=== PATIENT | male | born 1985 | race Caucasian/White ===

== ENCOUNTER 2017-06-25 20:36 | Emergency (ER) | payer MEDICAID ==
[2017-06-25] MEDS ORDERED: Albuterol 6.7 GM Inhaler INH ONE ×2 (20:37→23:37)
[2017-06-25 22:23] LABS: SODIUM,NA 137 mmol/L (135-145)
[2017-06-25 22:24] LABS: ANION GAP 11.2; CHLORIDE,CL 100 mmol/L (101-111)
[2017-06-25] MEDS ORDERED: Albuterol/Ipratropium 3.0-0.5 MG/3 ML Neb Soln NEB ONE (22:41)
--- NOTE | 2017-06-25 23:12 | EDM.PDOC ---
ED HPI GENERAL MEDICAL PROBLEM - General Chief Complaint: Chest Pain Stated Complaint: [id number] CHEST PAINS Time Seen by Provider: 06/25/17 21:00 Source of Information: Reports: Patient History Limitations: Reports: No Limitations - History of Present Illness INITIAL COMMENTS - FREE TEXT/NARRATIVE: ED with family with c/o of chest pain after eating and while playing bingo. Has had similar over past 2 days. no fever. Ocassional cough., smoker 1 PPD. Hx intermittent asthma. Has had HTN in past but "can't " tolerate any of the "10" medications they tried so just stopped them, Moved here in December from [place], has PCP but has not made appointment yet. Mid-Sternal Chest Pain Score (Numeric/FACES): 5 - Related Data Allergies Allergy/AdvReac Type Severity Reaction Status Date / Time No Known Allergies Allergy Verified 06/25/17 20:49 Home Meds: Home Meds Aspirin 81 mg PO DAILY 06/25/17 [History] Past Medical History Cardiovascular History: Reports: High Cholesterol, Hypertension Gastrointestinal History: Reports: GERD Social & Family History - Family History Family Medical History: Noncontributory - Tobacco Use Smoking Status *Q: Current Every Day Smoker Years of Tobacco use: 16 Packs/Tins Daily: 1 - Caffeine Use Caffeine Use: Reports: Soda - Recreational Drug Use Recreational Drug Use: No ED ROS GENERAL - Review of Systems Review Of Systems: See Below Constitutional: Reports: No Symptoms HEENT: Reports: No Symptoms Respiratory: Reports: Pleuritic Chest Pain Cardiovascular: Reports: Other (hx hypertension) GI/Abdominal: Reports: No Symptoms : Reports: No Symptoms Musculoskeletal: Reports: No Symptoms Neurological: Reports: Dizziness Psychiatric: Reports: No Symptoms ED EXAM, GENERAL - Physical Exam Exam: See Below Exam Limited By: No Limitations General Appearance: Alert, No Apparent Distress, Anxious, Obese Eye Exam: Bilateral Eye: PERRL Ears: Normal External Exam Ear Exam: Bilateral Ear: TM normal Nose: Normal Inspection Throat/Mouth: Normal Inspection Head: Atraumatic, Normocephalic Neck: Normal Inspection Respiratory/Chest: No Respiratory Distress, Wheezing (right) Cardiovascular: Normal Peripheral Pulses, Regular Rate, Rhythm GI/Abdominal: Normal Bowel Sounds Back Exam: Normal Inspection Extremities: Normal Inspection Neurological: Alert, Oriented, Normal Cognition Psychiatric: Normal Affect, Normal Mood Skin Exam: Warm, Dry, Intact, Normal Color Course - Vital Signs Last Recorded V/S: Last Vital Signs Temp 99.5 F 06/25/17 20:51 Pulse 69 06/25/17 22:48 Resp 20 06/25/17 20:51 BP 177/111 H 06/25/17 20:51 Pulse Ox 97 06/25/17 20:51 - Orders/Labs/Meds Orders: Active Orders 24 hr Category Date Time Status EKG 12 Lead [EKG Documentation Completion] [] STAT Care 06/25/17 21:11 Active RT Aerosol Therapy [] ASDIRECTED Care 06/25/17 22:41 Active Labs: Laboratory Tests 06/25/17 06/25/17 Range/Units 20:47 20:47 WBC 13.3 H (5.0-10.0) 10^3/uL RBC 5.10 (4.6-6.2) 10^6/uL Hgb 16.0 (14.0-18.0) g/dL Hct 46.1 (40.0-54.0) % MCV 90.4 (80-100) fL MCH 31.4 (27.0-34.0) pg MCHC 34.7 (33.0-35.0) g/dL Plt Count 181 (150-450) 10^3/uL Neut % (Auto) 63.0 (42.2-75.2) % Lymph % (Auto) 24.4 (20.5-50.1) % [place] % (Auto) 7.9 (2-8) % Eos % (Auto) 4.2 H (1.0-3.0) % Baso % (Auto) 0.5 (0.0-1.0) % Sodium 137 (135-145) mmol/L Potassium 3.2 L (3.6-5.0) mmol/L Chloride 100 L (101-111) mmol/L Carbon Dioxide 29.0 (21.0-31.0) mmol/L Anion Gap 11.2 BUN 7 (7-18) mg/dL Creatinine 0.8 (0.6-1.3) mg/dL Est Cr Clr Drug Dosing 125.09 mL/min Estimated GFR (MDRD) > 60 BUN/Creatinine Ratio 8.75 Glucose 114 H (74-105) mg/dL Calcium 8.9 (8.4-10.2) mg/dl Total Bilirubin 0.5 (0.2-1.0) mg/dL AST 27 (10-42) IU/L ALT 31 (10-60) IU/L Alkaline Phosphatase 61 (42-121) IU/L Troponin I < 0.02 (0.00-0.02) ng/ml Total Protein 7.0 (6.7-8.2) g/dl Albumin 4.1 (3.2-5.5) g/dl Globulin 2.9 Albumin/Globulin Ratio 1.41 Meds: Medications Discontinued Medications Generic Name Dose Route Start Last Admin Trade Name Freq PRN Reason Stop Dose Admin Al Hydroxide/Mg Hydroxide 30 ml 06/25/17 23:14 06/25/17 23:17 Gi Cocktail PO 06/25/17 23:15 30 ml ONETIME ONE Administration Albuterol Confirm 06/25/17 23:37 06/25/17 23:43 Proventil Hfa Administered 06/25/17 23:38 Not Given Dose 6.7 gm INH .STK-MED ONE Albuterol/Ipratropium 3 ml 06/25/17 22:41 06/25/17 22:48 Duoneb 3.0-0.5 Mg/3 Ml NEB 06/25/17 22:42 3 ml ONETIME ONE Administration - Re-Assessments/Exams Free Text/Narrative Re-Assessment/Exam: 06/26/17 06:04 Mild relief of sx following neb. Complete relief following GI cocktail. Departure - Departure Time of Disposition: 23:40 Disposition: Home, Self-Care 01 Condition: Good Clinical Impression: Atypical chest pain Gastroesophageal reflux disease Qualifiers: Esophagitis presence: without esophagitis Qualified Code(s): K21.9 - Gastro- esophageal reflux disease without esophagitis Instructions: Nonspecific Chest Pain, [id number] Referrals: PCP,Not In Area [Primary Care Provider] - Forms: ED Department Discharge Additional Instructions: Establish primary care, monitor blood pressure low salt, low fat, low acid diet Albuterol inhaler 2 puffs every 4 hours as needed for cough and wheezing - My Orders Last 24 Hours: My Active Orders 06/25/17 21:11 EKG 12 Lead [EKG Documentation Completion] [RC] STAT 06/25/17 22:41 RT Aerosol Therapy [RC] ASDIRECTED - Assessment/Plan Last 24 Hours: My Active Orders 06/25/17 21:11 EKG 12 Lead [EKG Documentation Completion] [RC] STAT 06/25/17 22:41 RT Aerosol Therapy [RC] ASDIRECTED
[2017-06-25] MEDS ORDERED: GI Cocktail Oral Solution 30 ML PO ONE (23:14)
--- NOTE | 2017-06-26 13:31 | EKG ---
06/25/2017- CHIKIS BUSCH - FINDINGS: EKG per my reading shows sinus rhythm at the rate of 85. [facility] /[id number]
== END 2017-06-25 23:45 | disposition home or self-care (01) ==
LOC: DL.ED 20:36
DX: K21.9 Gastro-esophageal reflux disease without esophagitis (principal); I10 Essential (primary) hypertension; E78.00 Pure hypercholesterolemia, unspecified; F17.210 Nicotine dependence, cigarettes, uncomplicated; Z79.82 Long term (current) use of aspirin
CPT/HCPCS: 36415; 71045; 80053; 84484; 85025; 93005; 94640; 99285; A9270

== ENCOUNTER 2019-02-22 11:04 | Emergency (ER) | payer MEDICAID ==
--- NOTE | 2019-02-22 11:21 | EDM.PDOC ---
ED HPI GENERAL MEDICAL PROBLEM - General Chief Complaint: Respiratory Problem Stated Complaint: SOB/NAUSEA Time Seen by Provider: 02/22/19 11:21 Source of Information: Reports: Patient, RN, RN Notes Reviewed History Limitations: Reports: No Limitations - History of Present Illness INITIAL COMMENTS - FREE TEXT/NARRATIVE: patient presents to the ER with complaint of head and chest congestion, fever chills, nausea and vomiting, productive cough with green sputum. admits to shortness of breath, chest pain with cough.Patient states this has been going on for a week or week and a half. She states she has gotten bronchitis frequently in the past. Admits to being a smoker. Admits history of asthma, and high blood pressure. Patient states he has not followed up with his primary care provider. Onset: Gradual Onset Date: 02/13/19 - Related Data Allergies Allergy/AdvReac Type Severity Reaction Status Date / Time No Known Allergies Allergy Verified 02/22/19 11:10 Home Meds: Home Meds . [No Known Home Meds] 02/22/19 [History] Past Medical History HEENT History: Reports: None Cardiovascular History: Reports: High Cholesterol, Hypertension Other Cardiovascular History: Pt states the last time he was in the ER he was told to be on high blood pressure meds but he stopped taking it after a few days because he felt it made his blood pressure worse Respiratory History: Reports: Asthma, Bronchitis, Recurrent Gastrointestinal History: Reports: GERD Genitourinary History: Reports: None Musculoskeletal History: Reports: None Neurological History: Reports: None Psychiatric History: Reports: None Endocrine/Metabolic History: Reports: Obesity/BMI 30+ Hematologic History: Reports: None Immunologic History: Reports: None Oncologic (Cancer) History: Reports: None Dermatologic History: Reports: None - Infectious Disease History Infectious Disease History: Reports: None - Past Surgical History Head Surgeries/Procedures: Reports: None Social & Family History - Family History Family Medical History: Noncontributory - Tobacco Use Smoking Status *Q: Current Every Day Smoker Years of Tobacco use: 22 Packs/Tins Daily: 1 - Caffeine Use Caffeine Use: Reports: Soda - Recreational Drug Use Recreational Drug Use: No ED ROS GENERAL - Review of Systems Review Of Systems: ROS reveals no pertinent complaints other than HPI. ED EXAM, GENERAL - Physical Exam Exam: See Below Exam Limited By: No Limitations General Appearance: Alert, WD/WN, No Apparent Distress Eye Exam: Bilateral Eye: EOMI, Normal Inspection Ears: Normal External Exam, Hearing Grossly Normal Nose: Normal Inspection Throat/Mouth: Normal Inspection, Normal Voice, No Airway Compromise Head: Atraumatic, Normocephalic Neck: Normal Inspection, Supple, Non-Tender, Full Range of Motion Respiratory/Chest: No Respiratory Distress, Rhonchi (throughout), Wheezing ( throughout) Cardiovascular: Normal Peripheral Pulses, Regular Rate, Rhythm, No Edema, No Gallop, No JVD, No Murmur, No Rub Peripheral Pulses: 2+: Radial (L), Radial (R) GI/Abdominal: Normal Bowel Sounds, Soft, Non-Tender (Male) Exam: Deferred Rectal (Males) Exam: Deferred Back Exam: Normal Inspection, Full Range of Motion, NT Extremities: Normal Inspection, Normal Range of Motion, Non-Tender, Normal Capillary Refill, No Pedal Edema Neurological: Alert, Oriented, CN II-XII Intact, Normal Cognition, Normal Gait, Normal Reflexes, No Motor/Sensory Deficits Psychiatric: Normal Affect, Normal Mood Skin Exam: Warm, Dry, Intact, Normal Color, No Rash Lymphatic: No Adenopathy Course - Vital Signs Last Recorded V/S: Last Vital Signs Temp 98.6 F 02/22/19 11:11 Pulse 100 02/22/19 11:11 Resp 18 02/22/19 11:11 BP 161/96 H 02/22/19 11:11 Pulse Ox 98 02/22/19 11:11 - Radiology Interpretation Free Text/Narrative:: chest x-ray: FINDINGS: Lungs: Hazy opacity overlying the lung bases on the frontal view only, most likely related to overlying soft tissues. No dense consolidation or jennifer pulmonary edema. Pleural space: Unremarkable. No pleural effusion. No pneumothorax. Heart/Mediastinum: Unremarkable. No cardiomegaly. Bones/joints: Unremarkable. IMPRESSION: No acute cardiopulmonary abnormality. Thank you for allowing us to participate in the care of your patient. Dictated and Authenticated by: Jenny Odell MD 02/22/2019 12:24 PM Central Time ([place] & [place]) See radiologist's report Departure - Departure Time of Disposition: 12:32 Disposition: Home, Self-Care 01 Condition: Fair Clinical Impression: Bronchitis - Discharge Information *PRESCRIPTION DRUG MONITORING PROGRAM REVIEWED*: No *COPY OF PRESCRIPTION DRUG MONITORING REPORT IN PATIENT CHAYO: No Instructions: Shortness of Breath, Adult, [id number], Upper Respiratory Infection, Adult, [id number]-[id number], Acute Bronchitis, Adult, [id number], Steps to Quit Smoking, [id number], How to Use a Dry Powder Inhaler, [id number] Forms: ED Department Discharge Additional Instructions: Rx: Prednisone 40 mg orally daily 5 days, albuterol inhaler 1-2 puffs inhaled every 4 hours as needed for shortness of breath, azithromycin 500 mg today, 250 mg daily for the next 4 drink plenty of water May use [id number] Coricidin HBP for sinus congestion Follow-up with your primary care provider
== END 2019-02-22 12:42 | disposition home or self-care (01) ==
LOC: DL.ED 11:04
DX: J40 Bronchitis, not specified as acute or chronic (principal); I10 Essential (primary) hypertension; J45.909 Unspecified asthma, uncomplicated; E66.9 Obesity, unspecified; F17.210 Nicotine dependence, cigarettes, uncomplicated; Z68.41 Body mass index [BMI] 40.0-44.9, adult
CPT/HCPCS: 71046; 99283

== ENCOUNTER 2021-05-07 10:57 | Inpatient (IN) | payer MEDICAID ==
[2021-05-07] MEDS ORDERED: Albuterol/Ipratropium 3.0-0.5 MG/3 ML Neb Soln NEB ONE (11:16)
[2021-05-07] MEDS ORDERED: Aspirin 81 MG Tab.Chew PO ONE (11:16)
[2021-05-07] MEDS ORDERED: Dexamethasone 4 MG/ML SDV IVPUSH ONE (11:16)
[2021-05-07] MEDS ORDERED: Sodium Chloride 0.9% 1,000 ML IV ONE (11:17)
[2021-05-07] MEDS: Sodium Chloride 0.9% 10 ML Syringe FLUSH PRN (11:44)
[2021-05-07 11:55] LABS: ANION GAP 16.8 mEq/L (7-13); CHLORIDE,CL 95 mmol/L (98-107); SODIUM,NA 134 mmol/L (136-145)
[2021-05-07 12:17] LABS: CORONAVIRUS COVID-19 NAA NEGATIVE (NEGATIVE); RESPIRATORY SYNCYTIAL VIR NAA NEGATIVE (NEGATIVE)
[2021-05-07] MEDS ORDERED: Oseltamivir 75 MG Cap PO ONE (12:23)
--- NOTE | 2021-05-07 12:50 | CT ---
PROCEDURE INFORMATION: Exam: CT Chest Without Contrast; Diagnostic Exam date and time: 05/07/2021 12:31 PM Age: 35 years old Clinical indication: Dyspnea and shortness of breath; Additional info: Dyspnea, hypoxia, influenza+, acute resp. Failure TECHNIQUE: Imaging protocol: Diagnostic computed tomography of the chest without contrast. Radiation optimization: All CT scans at this facility use at least one of these dose optimization techniques: automated exposure control; mA and/or kV adjustment per patient size (includes targeted exams where dose is matched to clinical indication); or iterative reconstruction. COMPARISON: CR Chest 2V 02/22/2019 11:39 AM FINDINGS: Lungs: There is mild diffuse bronchial wall thickening. The findings could be due to bronchitis. Reactive airways disease/asthma also possible. There is no bronchiectasis. There is no pulmonary fibrosis. No definite pneumonia or pulmonary edema. Pleural spaces: Unremarkable. No pneumothorax. No pleural effusion. Heart: Unremarkable. No cardiomegaly. No pericardial effusion. Aorta: Unremarkable. No aortic aneurysm. Lymph nodes: Unremarkable. No enlarged lymph nodes. Liver: The liver is enlarged and of low attenuation. Findings compatible with steatosis. Bones/joints: Unremarkable. No acute fracture. Soft tissues: Unremarkable. IMPRESSION: 1. Diffuse bronchial wall thickening suggestive of bronchitis. Reactive airways disease/asthma could produce a similar appearance. 2. Enlarged fatty liver.
[2021-05-07] MEDS ORDERED: Acetaminophen 500 MG Tab PO ONE (13:13)
--- NOTE | 2021-05-07 13:27 | EDM.PDOC ---
"Scribed by Annel Knowles 05/07/21 1146 for Shannon Mcguire MD ED HPI GENERAL MEDICAL PROBLEM - General Chief Complaint: Respiratory Problem Stated Complaint: TROUBLE BREATHING Time Seen by Provider: 05/07/21 11:11 Source of Information: Reports: Patient, RN, RN Notes Reviewed History Limitations: Reports: No Limitations - History of Present Illness INITIAL COMMENTS - FREE TEXT/NARRATIVE: Patient presents to ED by POV with complaint of sudden onset of shortness of breath starting yesterday with congestion cough and fever. Pt has history of asthma a obesity. Denies N/V, hemoptysis, or edema. Admits to orthopnea and sharp chest pain with cough and breathing and some chest pressure. Onset: Sudden Onset Date: 05/06/21 Duration: Constant, Getting Worse Location: Reports: Chest, Generalized Quality: Reports: Pressure, Sharp Severity: Severe Improves with: Reports: None Worsens with: Reports: None Associated Symptoms: Reports: No Other Symptoms - Related Data Allergies Allergy/AdvReac Type Severity Reaction Status Date / Time No Known Allergies Allergy Verified 05/07/21 11:24 Home Meds: Home Meds . [No Known Home Meds] 02/22/19 [History] Past Medical History HEENT History: Reports: None Cardiovascular History: Reports: High Cholesterol, Hypertension Other Cardiovascular History: Pt states the last time he was in the ER he was told to be on high blood pressure meds but he stopped taking it after a few days because he felt it made his blood pressure worse Respiratory History: Reports: Asthma, Bronchitis, Recurrent Gastrointestinal History: Reports: GERD Genitourinary History: Reports: None Musculoskeletal History: Reports: None Neurological History: Reports: None Psychiatric History: Reports: None Endocrine/Metabolic History: Reports: Obesity/BMI 30+ Hematologic History: Reports: None Immunologic History: Reports: None Oncologic (Cancer) History: Reports: None Dermatologic History: Reports: None - Infectious Disease History Infectious Disease History: Reports: None - Past Surgical History Head Surgeries/Procedures: Reports: None Social & Family History - Family History Family Medical History: No Pertinent Family History - Caffeine Use Caffeine Use: Reports: Soda - Living Situation & Occupation Occupation: Employed ED ROS GENERAL - Review of Systems Review Of Systems: Comprehensive ROS is negative, except as noted in HPI. ED EXAM, GENERAL - Physical Exam Exam: See Below Exam Limited By: No Limitations General Appearance: Alert, Anxious, Mild Distress, Obese Eye Exam: Bilateral Eye: Normal Inspection Nose: No Blood, Nasal Drainage (Congested with small amount of clear drainage) Throat/Mouth: Normal Lips, Normal Oropharynx, Normal Voice, No Airway Compromise, Other (Very dry oral mucosa) Head: Atraumatic, Normocephalic Neck: Normal Inspection, Non-Tender, Full Range of Motion. No: Lymphadenopathy (L), Lymphadenopathy (R) Respiratory/Chest: No Respiratory Distress, No Accessory Muscle Use, Chest Non- Tender, Decreased Breath Sounds, Other (Increased work of breathing). No: Crackles, Rales, Rhonchi, Wheezing GI/Abdominal: Normal Bowel Sounds, Soft, Non-Tender, Other (Benign obese abdomen) Back Exam: Normal Inspection Extremities: Normal Inspection, Normal Range of Motion, Non-Tender, Normal Capillary Refill, No Pedal Edema Neurological: Alert, Oriented, CN II-XII Intact, Normal Cognition, Normal Gait, No Motor/Sensory Deficits Psychiatric: Normal Affect, Anxious Skin Exam: Warm, Dry, Intact, Normal Color, No Rash #1 Interpretation EKG Date: 05/07/21 Time: 11:26 Rhythm: Other (sinus tachycardia) Rate (Beats/Min): 124 [place]: Normal P-Wave: Present QRS: Other (narrow complex QRS with S1, P3, T3 patteran.) ST-T: Normal QT: Normal Comparison: NA - No Prior EKG Course - Vital Signs Last Recorded V/S: Last Vital Signs Temp 100 F 05/07/21 13:17 Pulse 128 H 05/07/21 11:19 Resp 22 H 05/07/21 11:19 BP 159/118 H 05/07/21 11:19 Pulse Ox 89 L 05/07/21 11:19 - Orders/Labs/Meds Orders: Active Orders 24 hr Category Date Time Status Peripheral IV Care [RC] . DIRECTED Care 05/07/21 11:18 Active RT Aerosol Therapy [RC] ASDIRECTED Care 05/07/21 11:16 Active CULTURE BLOOD [BC] Stat Lab 05/07/21 11:15 Received CULTURE BLOOD [BC] Stat Lab 05/07/21 11:40 Received Sodium Chloride 0.9% [Saline Flush] Med 05/07/21 11:18 Active 10 ml FLUSH ASDIRECTED PRN Blood Culture x2 Reflex Set [OM.PC] Stat Oth 05/07/21 11:17 Ordered Peripheral IV Insertion Adult [OM.PC] Stat Oth 05/07/21 11:18 Ordered Medication Orders Sodium Chloride (Sodium Chloride 0.9% 10 Ml Syringe) 10 ml FLUSH ASDIRECTED PRN PRN Reason: Keep Vein Open Last Admin: 05/07/21 11:44 Dose: 10 ml Documented by: KEVIN Labs: Laboratory Tests 05/07/21 05/07/21 05/07/21 Range/Units 11:01 11:15 11:15 WBC 15.0 H (5.0-10.0) 10^3/uL RBC 5.35 (4.6-6.2) 10^6/uL Hgb 16.4 (14.0-18.0) g/dL Hct 49.8 (40.0-54.0) % MCV 93.1 (80-100) fL MCH 30.7 (27.0-34.0) pg MCHC 32.9 L (33.0-35.0) g/dL Plt Count 155 (150-450) 10^3/uL Neut % (Auto) 80.6 H (42.2-75.2) % Lymph % (Auto) 6.3 L (20.5-50.1) % [place] % (Auto) 12.7 H (2-8) % Eos % (Auto) 0.1 L (1.0-3.0) % Baso % (Auto) 0.3 (0.0-1.0) % Add Manual Diff Yes Neutrophils % (Manual) 82 H (42-75) % Band Neutrophils % 4 % Lymphocytes % (Manual) 4 L (20-50) % Monocytes % (Manual) 10 H (2-8) % PT (9.0-12.0) SEC INR (0.9-1.2) APTT (22.0-34.0) SEC D-Dimer, Quantitative (0-400) ng/mL Sodium 134 L (136-145) mmol/L Potassium 3.8 (3.5-5.1) mmol/L Chloride 95 L (98-107) mmol/L Carbon Dioxide 26 (21-32) mmol/L Anion Gap 16.8 H (7-13) mEq/L BUN 13 (7-18) mg/dL Creatinine 0.94 (0.70-1.30) mg/dL Est Cr Clr Drug Dosing 102.55 mL/min Estimated GFR (MDRD) > 60 BUN/Creatinine Ratio 13.8 (No establ ref range) Glucose 144 H (70-99) mg/dL Lactic Acid (0.4-2.0) mmol/L Calcium 8.5 (8.5-10.1) mg/dL Ferritin (26-388) mg/mL Total Bilirubin 0.4 (0.2-1.0) mg/dL AST 45 H (15-37) U/L ALT 48 (16-63) U/L Alkaline Phosphatase 65 (46-116) U/L Troponin I High Sens 18 (<=76) pg/mL C-Reactive Protein 8.1 H (0.0-0.9) mg/dL B-Natriuretic Peptide < 5 (0-100) pg/ml Total Protein 7.8 (6.4-8.2) g/dL Albumin 3.8 (3.4-5.0) g/dL Globulin 4.0 Albumin/Globulin Ratio 0.9 Influenza Type A RNA Positive H (NEGATIVE) RSV RNA (INAAT) Negative (NEGATIVE) Influenza Type B RNA Negative (NEGATIVE) SARS-CoV-2 RNA (MEE) Negative (NEGATIVE) 05/07/21 05/07/21 05/07/21 Range/Units 11:15 11:15 11:40 WBC (5.0-10.0) 10^3/uL RBC (4.6-6.2) 10^6/uL Hgb (14.0-18.0) g/dL Hct (40.0-54.0) % MCV (80-100) fL MCH (27.0-34.0) pg MCHC (33.0-35.0) g/dL Plt Count (150-450) 10^3/uL Neut % (Auto) (42.2-75.2) % Lymph % (Auto) (20.5-50.1) % [place] % (Auto) (2-8) % Eos % (Auto) (1.0-3.0) % Baso % (Auto) (0.0-1.0) % Add Manual Diff Neutrophils % (Manual) (42-75) % Band Neutrophils % % Lymphocytes % (Manual) (20-50) % Monocytes % (Manual) (2-8) % PT 12.1 H (9.0-12.0) SEC INR 1.2 (0.9-1.2) APTT 31.0 (22.0-34.0) SEC D-Dimer, Quantitative 211 (0-400) ng/mL Sodium (136-145) mmol/L Potassium (3.5-5.1) mmol/L Chloride (98-107) mmol/L Carbon Dioxide (21-32) mmol/L Anion Gap (7-13) mEq/L BUN (7-18) mg/dL Creatinine (0.70-1.30) mg/dL Est Cr Clr Drug Dosing mL/min Estimated GFR (MDRD) BUN/Creatinine Ratio (No establ ref range) Glucose (70-99) mg/dL Lactic Acid 1.6 (0.4-2.0) mmol/L Calcium (8.5-10.1) mg/dL Ferritin 572 H (26-388) mg/mL Total Bilirubin (0.2-1.0) mg/dL AST (15-37) U/L ALT (16-63) U/L Alkaline Phosphatase (46-116) U/L Troponin I High Sens (<=76) pg/mL C-Reactive Protein (0.0-0.9) mg/dL B-Natriuretic Peptide (0-100) pg/ml Total Protein (6.4-8.2) g/dL Albumin (3.4-5.0) g/dL Globulin Albumin/Globulin Ratio Influenza Type A RNA (NEGATIVE) RSV RNA (INAAT) (NEGATIVE) Influenza Type B RNA (NEGATIVE) SARS-CoV-2 RNA (MEE) (NEGATIVE) Meds: Medications Generic Name Dose Route Start Last Admin Trade Name Freq PRN Reason Stop Dose Admin Sodium Chloride 10 ml 05/07/21 11:18 05/07/21 11:44 Sodium Chloride 0.9% 10 Ml Syringe FLUSH 10 ml ASDIRECTED PRN Administration Keep Vein Open Discontinued Medications Generic Name Dose Route Start Last Admin Trade Name Freq PRN Reason Stop Dose Admin Acetaminophen 1,000 mg 05/07/21 13:13 05/07/21 13:17 Acetaminophen 500 Mg Tab PO 05/07/21 13:14 1,000 mg ONETIME ONE Administration Albuterol/Ipratropium 3 ml 05/07/21 11:16 05/07/21 11:34 Albuterol/Ipratropium 3.0-0.5 Mg/3 Ml Neb Soln NEB 05/07/21 11:17 3 ml ONETIME ONE Administration Aspirin 324 mg 05/07/21 11:16 05/07/21 11:43 Aspirin 81 Mg Tab.Chew PO 05/07/21 11:17 324 mg ONETIME ONE Administration Dexamethasone 6 mg 05/07/21 11:16 05/07/21 11:43 Dexamethasone 4 Mg/Ml Sdv IVPUSH 05/07/21 11:17 6 mg ONETIME ONE Administration Sodium Chloride 1,000 mls @ 999 mls/hr 05/07/21 11:17 05/07/21 11:43 Normal Saline IV 05/07/21 12:17 999 mls/hr .BOLUS ONE Administration Oseltamivir Phosphate 75 mg 05/07/21 12:23 05/07/21 13:04 Oseltamivir 75 Mg Cap PO 05/07/21 12:24 75 mg ONETIME ONE Administration - Radiology Interpretation Free Text/Narrative:: [facility] Final Radiology Report Call: [phone] assistance Online chat: [email or web address] Name: CHIKIS BUSCH Age: 35Years M Date: 05/07/2021 SSN: -- : [id number] Study: CT CHEST WO CONT Requesting Physician: SHANNON MCGUIRE Images: [phone] Addl Studies: Provided Clinical History: Dyspnea, hypoxia, influenza+, acute resp. failure Contrast: Without Contrast Medium: Contrast Amount: Contrast Method: Page 1 of 2 PROCEDURE INFORMATION: Exam: CT Chest Without Contrast; Diagnostic Exam date and time: 05/07/2021 12:31 PM Age: 35 years old Clinical indication: Dyspnea and shortness of breath; Additional info: Dyspnea, hypoxia, influenza+, acute resp. Failure TECHNIQUE: Imaging protocol: Diagnostic computed tomography of the chest without contrast. Radiation optimization: All CT scans at this facility use at least one of these dose optimization techniques: automated exposure control; mA and/or kV adjustment per patient size (includes targeted exams where dose is matched to clinical indication); or iterative reconstruction. COMPARISON: CR Chest 2V 02/22/2019 11:39 AM FINDINGS: Lungs: There is mild diffuse bronchial wall thickening. The findings could be due to bronchitis. Reactive airways disease/asthma also possible. There is no bronchiectasis. There is no pulmonary fibrosis. No definite pneumonia or pulmonary edema. Pleural spaces: Unremarkable. No pneumothorax. No pleural effusion. Heart: Unremarkable. No cardiomegaly. No pericardial effusion. Aorta: Unremarkable. No aortic aneurysm. Lymph nodes: Unremarkable. No enlarged lymph nodes. Liver: The liver is enlarged and of low attenuation. Findings compatible with steatosis. Bones/joints: Unremarkable. No acute fracture. Soft tissues: Unremarkable. IMPRESSION: CHIKIS BUSCH | Final Radiology Report CONFIDENTIALITY STATEMENT This report is intended only for use by the referring physician, and only in accordance with law. If you received this in error, call [phone]. Page 2 of 2 1. Diffuse bronchial wall thickening suggestive of bronchitis. Reactive airways disease/asthma could produce a similar appearance. 2. Enlarged fatty liver. Thank you for allowing us to participate in the care of your patient. Dictated and Authenticated by: Ray Barbosa MD 05/07/2021 12:49 PM Central Time ([place] & [place]) Departure - Departure Time of Disposition: 13:25 (admitted to Dr. Cruz) Disposition: Admitted As Inpatient 66 Condition: Fair Clinical Impression: Influenza A, Acute respiratory failure with hypoxia, History of asthma - Discharge Information *PRESCRIPTION DRUG MONITORING PROGRAM REVIEWED*: Not Applicable *COPY OF PRESCRIPTION DRUG MONITORING REPORT IN PATIENT [place]: Not Applicable Forms: ED Department Discharge Sepsis Event Note (ED) - Focused Exam Vital Signs: Vital Signs Temp Temp Pulse Resp BP Pulse Ox 05/07/21 13:17 100 F 05/07/21 11:19 103.5 F H 128 H 22 H 159/118 H 89 L - My Orders Last 24 Hours: My Active Orders 05/07/21 11:15 CULTURE BLOOD [BC] Stat 05/07/21 11:16 RT Aerosol Therapy [RC] ASDIRECTED 05/07/21 11:17 Blood Culture x2 Reflex Set [OM.PC] Stat 05/07/21 11:18 Peripheral IV Care [RC] . DIRECTED Sodium Chloride 0.9% [Saline Flush] 10 ml FLUSH ASDIRECTED PRN Peripheral IV Insertion Adult [OM.PC] Stat 05/07/21 11:40 CULTURE BLOOD [BC] Stat - Assessment/Plan Last 24 Hours: My Active Orders 05/07/21 11:15 CULTURE BLOOD [BC] Stat 05/07/21 11:16 RT Aerosol Therapy [RC] ASDIRECTED 05/07/21 11:17 Blood Culture x2 Reflex Set [OM.PC] Stat 05/07/21 11:18 Peripheral IV Care [RC] . DIRECTED Sodium Chloride 0.9% [Saline Flush] 10 ml FLUSH ASDIRECTED PRN Peripheral IV Insertion Adult [OM.PC] Stat 05/07/21 11:40 CULTURE BLOOD [BC] Stat I have read and agree with the documentation that has been completed regarding this visit. By signing this record, I attest that the documentation was completed in my physical presence and is an accurate record of the encounter."
[2021-05-07] MEDS ORDERED: Docusate Sodium 100 MG Cap PO PRN (14:13)
[2021-05-07] MEDS ORDERED: oxyCODONE 5 MG Tab PO PRN (14:13)
[2021-05-07] MEDS ORDERED: Acetaminophen 325 MG Tab PO PRN (14:13)
[2021-05-07] MEDS ORDERED: Ondansetron 4 MG/2 ML SDV IVPUSH PRN (14:13)
[2021-05-07] MEDS ORDERED: 50% Dextrose in Water 50 ML Syringe IVPUSH PRN (14:15)
[2021-05-07] MEDS ORDERED: Albuterol/Ipratropium 3.0-0.5 MG/3 ML Neb Soln NEB PRN (14:18)
[2021-05-07] MEDS: methylPREDNISolone Sodium Succinate 40 MG/1 ML SDV IVPUSH SCH ×2 (14:41→20:36)
[2021-05-07] MEDS: NS + KCl 20mEq/L 1,000 ML IV SCH ×2 (14:42→20:55)
[2021-05-07] MEDS ORDERED: Azithromycin 250 MG Tab PO SCH (15:15)
--- NOTE | 2021-05-07 15:21 | PCM.HP ---
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 [No Known Home Meds] 02/22/19 [History] Past Medical History HEENT History: Reports: None Cardiovascular History: Reports: High Cholesterol, Hypertension Other Cardiovascular History: Pt states the last time he was in the ER he was told to be on high blood pressure meds but he stopped taking it after a few days because he felt it made his blood pressure worse Respiratory History: Reports: Asthma, Bronchitis, Recurrent Gastrointestinal History: Reports: GERD Genitourinary History: Reports: None Musculoskeletal History: Reports: None Neurological History: Reports: None Psychiatric History: Reports: None Endocrine/Metabolic History: Reports: Obesity/BMI 30+ Hematologic History: Reports: None Immunologic History: Reports: None Oncologic (Cancer) History: Reports: None Dermatologic History: Reports: None - Infectious Disease History Infectious Disease History: Reports: None - Past Surgical History Head Surgeries/Procedures: Reports: None Social & Family History - Family History Family Medical History: No Pertinent Family History - Tobacco Use Tobacco Use Status *Q: Current Every Day Tobacco User Years of Tobacco use: 20 Packs/Tins Daily: 1 - Caffeine Use Caffeine Use: Reports: Soda - Recreational Drug Use Recreational Drug Use: No H&P Review of Systems - Review of Systems: Review Of Systems: See Below General: Reports: Fever, Chills, Malaise Pulmonary: Reports: Shortness of Breath Cardiovascular: Reports: Chest Pain (with cough) Gastrointestinal: Denies: Abdominal Pain Psychiatric: Denies: Confusion Exam - Exam Exam: See Below - Vital Signs Vital Signs: Last Vital Signs Temp 99.0 F 05/07/21 14:02 Pulse 103 H 05/07/21 14:02 Resp 20 05/07/21 14:02 BP 130/77 05/07/21 14:02 Pulse Ox 90 L 05/07/21 14:13 Weight: 297 lb 4.8 oz - Exam Quality Assessment: Supplemental Oxygen General: Alert Neck: Supple Lungs: Normal Respiratory Effort, Wheezing Cardiovascular: Regular Rate, Regular Rhythm GI/Abdominal Exam: Normal Bowel Sounds, Soft, Non-Tender Extremities: No Pedal Edema Skin: Warm, Dry Neuro Extensive - Mental Status: Alert, Oriented x3, Normal Mood/Affect - Patient Data Lab Results Last 24 hrs: Laboratory Results - last 24 hr 05/07/21 05/07/21 05/07/21 Range/Units 11:01 11:15 11:15 WBC 15.0 H (5.0-10.0) 10^3/uL RBC 5.35 (4.6-6.2) 10^6/uL Hgb 16.4 (14.0-18.0) g/dL Hct 49.8 (40.0-54.0) % MCV 93.1 (80-100) fL MCH 30.7 (27.0-34.0) pg MCHC 32.9 L (33.0-35.0) g/dL Plt Count 155 (150-450) 10^3/uL Neut % (Auto) 80.6 H (42.2-75.2) % Lymph % (Auto) 6.3 L (20.5-50.1) % [place] % (Auto) 12.7 H (2-8) % Eos % (Auto) 0.1 L (1.0-3.0) % Baso % (Auto) 0.3 (0.0-1.0) % Add Manual Diff Yes Neutrophils % (Manual) 82 H (42-75) % Band Neutrophils % 4 % Lymphocytes % (Manual) 4 L (20-50) % Monocytes % (Manual) 10 H (2-8) % PT (9.0-12.0) SEC INR (0.9-1.2) APTT (22.0-34.0) SEC D-Dimer, Quantitative (0-400) ng/mL Sodium 134 L (136-145) mmol/L Potassium 3.8 (3.5-5.1) mmol/L Chloride 95 L (98-107) mmol/L Carbon Dioxide 26 (21-32) mmol/L Anion Gap 16.8 H (7-13) mEq/L BUN 13 (7-18) mg/dL Creatinine 0.94 (0.70-1.30) mg/dL Est Cr Clr Drug Dosing 102.55 mL/min Estimated GFR (MDRD) > 60 BUN/Creatinine Ratio 13.8 (No establ ref range) Glucose 144 H (70-99) mg/dL Lactic Acid (0.4-2.0) mmol/L Calcium 8.5 (8.5-10.1) mg/dL Ferritin (26-388) mg/mL Total Bilirubin 0.4 (0.2-1.0) mg/dL AST 45 H (15-37) U/L ALT 48 (16-63) U/L Alkaline Phosphatase 65 (46-116) U/L Troponin I High Sens 18 (<=76) pg/mL C-Reactive Protein 8.1 H (0.0-0.9) mg/dL B-Natriuretic Peptide < 5 (0-100) pg/ml Total Protein 7.8 (6.4-8.2) g/dL Albumin 3.8 (3.4-5.0) g/dL Globulin 4.0 Albumin/Globulin Ratio 0.9 Influenza Type A RNA Positive H (NEGATIVE) RSV RNA (INAAT) Negative (NEGATIVE) Influenza Type B RNA Negative (NEGATIVE) SARS-CoV-2 RNA (MEE) Negative (NEGATIVE) 05/07/21 05/07/21 05/07/21 Range/Units 11:15 11:15 11:40 WBC (5.0-10.0) 10^3/uL RBC (4.6-6.2) 10^6/uL Hgb (14.0-18.0) g/dL Hct (40.0-54.0) % MCV (80-100) fL MCH (27.0-34.0) pg MCHC (33.0-35.0) g/dL Plt Count (150-450) 10^3/uL Neut % (Auto) (42.2-75.2) % Lymph % (Auto) (20.5-50.1) % [place] % (Auto) (2-8) % Eos % (Auto) (1.0-3.0) % Baso % (Auto) (0.0-1.0) % Add Manual Diff Neutrophils % (Manual) (42-75) % Band Neutrophils % % Lymphocytes % (Manual) (20-50) % Monocytes % (Manual) (2-8) % PT 12.1 H (9.0-12.0) SEC INR 1.2 (0.9-1.2) APTT 31.0 (22.0-34.0) SEC D-Dimer, Quantitative 211 (0-400) ng/mL Sodium (136-145) mmol/L Potassium (3.5-5.1) mmol/L Chloride (98-107) mmol/L Carbon Dioxide (21-32) mmol/L Anion Gap (7-13) mEq/L BUN (7-18) mg/dL Creatinine (0.70-1.30) mg/dL Est Cr Clr Drug Dosing mL/min Estimated GFR (MDRD) BUN/Creatinine Ratio (No establ ref range) Glucose (70-99) mg/dL Lactic Acid 1.6 (0.4-2.0) mmol/L Calcium (8.5-10.1) mg/dL Ferritin 572 H (26-388) mg/mL Total Bilirubin (0.2-1.0) mg/dL AST (15-37) U/L ALT (16-63) U/L Alkaline Phosphatase (46-116) U/L Troponin I High Sens (<=76) pg/mL C-Reactive Protein (0.0-0.9) mg/dL B-Natriuretic Peptide (0-100) pg/ml Total Protein (6.4-8.2) g/dL Albumin (3.4-5.0) g/dL Globulin Albumin/Globulin Ratio Influenza Type A RNA (NEGATIVE) RSV RNA (INAAT) (NEGATIVE) Influenza Type B RNA (NEGATIVE) SARS-CoV-2 RNA (MEE) (NEGATIVE) Result Diagrams: 05/07/21 11:15 05/07/21 11:15 - Problem List (1) Acute respiratory failure with hypoxia SNOMED Code(s): 97959119, 410664364 ICD Code: J96.01 - ACUTE RESPIRATORY FAILURE WITH HYPOXIA Status: Acute Current Visit: No (2) History of asthma SNOMED Code(s): 986535077 ICD Code: Z87.09 - PERSONAL HISTORY OF OTHER DISEASES OF THE RESPIRATORY SYSTEM Status: Acute Current Visit: No (3) Influenza A SNOMED Code(s): 909944370 ICD Code: J10.1 - FLU DUE TO OTH IDENT INFLUENZA VIRUS W OTH RESP MANIFEST Status: Acute Current Visit: No Problem List Initiated/Reviewed/Updated: Yes Orders Last 24hrs: Active Orders 24 hr Category Date Time Status Admission Diagnosis [ADT] Routine ADT 05/07/21 13:34 Ordered Patient Status [ADT] Routine ADT 05/07/21 13:34 Active Blood Glucose Check, Bedside [RC] WITHMEALSANDBED Care 05/07/21 14:15 Active Oxygen Therapy [RC] PRN Care 05/07/21 14:13 Active RT Aerosol Therapy [RC] ASDIRECTED Care 05/07/21 14:18 Active Up With Assistance [RC] 10 Care 05/07/21 14:13 Active VTE/DVT Education [RC] , Care 05/07/21 14:13 Active Vital Signs [RC] 00,04,08,12,16,20 Care 05/07/21 14:13 Active Regular Diet [DIET] Diet 05/07/21 Dinner Active CULTURE BLOOD [BC] Stat Lab 05/07/21 11:15 Received CULTURE BLOOD [BC] Stat Lab 05/07/21 11:40 Received PROCALCITONIN [REF] Routine Lab 05/07/21 11:40 Received Acetaminophen [TylenoL] Med 05/07/21 14:13 Active 650 mg PO Q4H PRN Albuterol/Ipratropium [DuoNeb 3.0-0.5 MG/3 ML] Med 05/07/21 18:00 Active 3 ml NEB Q6HRRT Albuterol/Ipratropium [DuoNeb 3.0-0.5 MG/3 ML] Med 05/07/21 14:18 Active 3 ml NEB Q6HRRT PRN Azithromycin [Zithromax] Med 05/07/21 15:15 Ordered 500 mg PO DAILY Budesonide [Pulmicort] Med 05/07/21 18:00 Active 0.5 mg NEB BIDRT Dextrose 50% in Water Med 05/07/21 14:15 Active 25 ml IVPUSH ASDIRECTED PRN Docusate Sodium [Colace] Med 05/07/21 14:13 Active 100 mg PO BID PRN Enoxaparin [Lovenox] Med 05/08/21 09:00 Active 40 mg SUBCUT DAILY Insulin Lispro [HumaLOG] Med 05/07/21 18:00 Active See Protocol SUBCUT WITHMEALSANDBED NS + KCl 20mEq/L [Normal Saline with 20 mEq KCl] 1,000 Med 05/07/21 14:15 Active ml IV ASDIRECTED Ondansetron [Zofran] Med 05/07/21 14:13 Active 4 mg IVPUSH Q6H PRN Oseltamivir [Tamiflu] Med 05/07/21 21:00 Active 75 mg PO BID Sodium Chloride 0.9% [Saline Flush] Med 05/07/21 11:18 Active 10 ml FLUSH ASDIRECTED PRN Temazepam [Restoril] Med 05/07/21 14:13 Active 15 mg PO BEDTIME PRN methylPREDNISolone Sod Succ [Solu-MEDROL] Med 05/07/21 14:00 Active 40 mg IVPUSH Q6H oxyCODONE Med 05/07/21 14:13 Active 5 mg PO Q4H PRN Blood Culture x2 Reflex Set [OM.PC] Stat Oth 05/07/21 11:17 Ordered Isolation [COMM] Routine Oth 05/07/21 14:17 Active Peripheral IV Insertion Adult [OM.PC] Stat Oth 05/07/21 11:18 Ordered Resuscitation Status Routine Resus Stat 05/07/21 14:13 Ordered Medication Orders Acetaminophen (Acetaminophen 325 Mg Tab) 650 mg PO Q4H PRN PRN Reason: Pain (Mild 1-3)/fever Albuterol/Ipratropium (Albuterol/Ipratropium 3.0-0.5 Mg/3 Ml Neb Soln) 3 ml NEB Q6HRRT [facility]RISTELLE Albuterol/Ipratropium (Albuterol/Ipratropium 3.0-0.5 Mg/3 Ml Neb Soln) 3 ml NEB Q6HRRT PRN PRN Reason: sob Azithromycin (Azithromycin 250 Mg Tab) 500 mg PO DAILY [facility]RISTELLE Budesonide (Budesonide 0.5 Mg/2 Ml Neb Susp) 0.5 mg NEB BIDRT [facility]RISTELLE Dextrose/Water (50% Dextrose In Water 50 Ml Syringe) 25 ml IVPUSH ASDIRECTED PRN PRN Reason: Hypoglycemia BS<70 Docusate Sodium (Docusate Sodium 100 Mg Cap) 100 mg PO BID PRN PRN Reason: Constipation Enoxaparin Sodium (Enoxaparin 40 Mg/0.4 Ml Syringe) 40 mg SUBCUT DAILY [facility] Potassium Chloride/Sodium Chloride (Normal Saline With 20 Meq Kcl) 1,000 mls @ 150 mls/hr IV ASDIRECTED CHRISTELLE Last Admin: 05/07/21 14:42 Dose: 150 mls/hr Documented by: JANNIE Insulin Human Lispro (Insulin Lispro 100 Units/Ml 3 Ml Vial) 0 unit SUBCUT WITHMEALSANDBED [facility]; Protocol Methylprednisolone Sodium Succinate (Methylprednisolone Sodium Succinate 40 Mg/1 Ml Sdv) 40 mg IVPUSH Q6H [facility] Last Admin: 05/07/21 14:41 Dose: 40 mg Documented by: JANNIE Ondansetron HCl (Ondansetron 4 Mg/2 Ml Sdv) 4 mg IVPUSH Q6H PRN PRN Reason: Nausea/Vomiting Oseltamivir Phosphate (Oseltamivir 75 Mg Cap) 75 mg PO BID [facility] Oxycodone HCl (Oxycodone 5 Mg Tab) 5 mg PO Q4H PRN PRN Reason: Pain (moderate 4-6) Sodium Chloride (Sodium Chloride 0.9% 10 Ml Syringe) 10 ml FLUSH ASDIRECTED PRN PRN Reason: Keep Vein Open Last Admin: 05/07/21 11:44 Dose: 10 ml Documented by: KEVIN Temazepam (Temazepam 15 Mg Cap) 15 mg PO BEDTIME PRN PRN Reason: Sleep Assessment/Plan Comment:: Acute hypoxemic respiratory failure Will supplement oxygen as needed Acute asthma exacerbation associated with obesity Will treat with pulmicort, scheduled and as needed duoneb Start solumedrol Acute viral influenza Start Tamiflu Respiratory isolation Check procalcitonin he is describing brown sputum - possible bacterial superinfection will add azithromycin until procal is resulted Hyponatremia mild Will hydrate Recheck in AM Hyperglycemia Follow BS Use supplemental insulin and hypoglycemia protocol as needed Dvt prophylaxis with lovenox
[2021-05-07] MEDS: Albuterol/Ipratropium 3.0-0.5 MG/3 ML Neb Soln NEB SCH (18:12)
[2021-05-07] MEDS: Budesonide 0.5 MG/2 ML Neb Susp NEB SCH (18:12)
[2021-05-07] MEDS: Azithromycin 250 MG Tab PO SCH (18:40)
[2021-05-07] MEDS: Insulin Lispro 100 Units/ML 3 ML Vial SUBCUT SCH ×2 (18:47→22:17)
[2021-05-07] MEDS: Temazepam 15 MG Cap PO PRN (20:36)
[2021-05-07] MEDS: Oseltamivir 75 MG Cap PO SCH (20:36)
[2021-05-08] MEDS: Albuterol/Ipratropium 3.0-0.5 MG/3 ML Neb Soln NEB SCH ×4 (00:52→18:06)
[2021-05-08] MEDS: methylPREDNISolone Sodium Succinate 40 MG/1 ML SDV IVPUSH SCH ×4 (00:59→19:51)
[2021-05-08] MEDS: NS + KCl 20mEq/L 1,000 ML IV SCH (04:28)
[2021-05-08] MEDS: Budesonide 0.5 MG/2 ML Neb Susp NEB SCH ×2 (07:38→18:06)
[2021-05-08] MEDS: Insulin Lispro 100 Units/ML 3 ML Vial SUBCUT SCH ×4 (09:58→21:54)
[2021-05-08] MEDS: Oseltamivir 75 MG Cap PO SCH ×2 (10:11→21:53)
[2021-05-08] MEDS: Azithromycin 250 MG Tab PO SCH (10:11)
[2021-05-08] MEDS: Enoxaparin 40 MG/0.4 ML Syringe SUBCUT SCH (10:13)
--- NOTE | 2021-05-08 13:45 | PCM.PN ---
- General Info Date of Service: 05/08/21 Admission Dx/Problem (Free Text): Admission Diagnosis/Problem Admission Diagnosis/Problem Acute respiratory failure Subjective Update: feeling better still requiring oxygen support sob is mild, improved, no associated cp Functional Status: Reports: Tolerating Diet - Review of Systems General: Reports: Fever (no fever overnight) Pulmonary: Reports: Shortness of Breath (improved), Wheezing Cardiovascular: Denies: Chest Pain, Edema Genitourinary: Denies: Dysuria Psychiatric: Denies: Confusion - Patient Data Vitals - Most Recent: Last Vital Signs Temp 97.8 F 05/08/21 12:00 Pulse 81 05/08/21 12:00 Resp 18 05/08/21 12:00 BP 147/76 H 05/08/21 12:00 Pulse Ox 93 L 05/08/21 12:00 Weight - Most Recent: 297 lb 4.8 oz I&O - Last 24 Hours: Intake & Output 05/07/21 05/08/21 05/08/21 22:59 06:59 14:59 Intake Total 520 2860 Balance 520 2860 Lab Results Last 24 Hours: Laboratory Results - last 24 hr 05/07/21 05/07/21 05/08/21 Range/Units 16:44 20:34 11:24 POC Glucose 222 H 198 H 268 H (70-99) mg/dL Beck Results Last 24 Hours: Microbiology 05/07/21 11:40 Aerobic Blood Culture - Preliminary Blood - Arm, Right NO GROWTH AFTER 1 DAY Anaerobic Blood Culture - Preliminary NO GROWTH AFTER 1 DAY 05/07/21 11:15 Aerobic Blood Culture - Preliminary Blood - Venous - Iv Start NO GROWTH AFTER 1 DAY Anaerobic Blood Culture - Preliminary NO GROWTH AFTER 1 DAY Med Orders - Current: Current Medications Acetaminophen (Acetaminophen 325 Mg Tab) 650 mg PO Q4H PRN PRN Reason: Pain (Mild 1-3)/fever Albuterol/Ipratropium (Albuterol/Ipratropium 3.0-0.5 Mg/3 Ml Neb Soln) 3 ml NEB Q6HRRT [facility] Last Admin: 05/08/21 07:38 Dose: 3 ml Documented by: Albuterol/Ipratropium (Albuterol/Ipratropium 3.0-0.5 Mg/3 Ml Neb Soln) 3 ml NEB Q6HRRT PRN PRN Reason: sob Last Admin: 05/07/21 15:17 Dose: 3 ml Documented by: Azithromycin (Azithromycin 250 Mg Tab) 500 mg PO DAILY [facility] Last Admin: 05/08/21 10:11 Dose: 500 mg Documented by: Budesonide (Budesonide 0.5 Mg/2 Ml Neb Susp) 0.5 mg NEB BIDRT [facility] Last Admin: 05/08/21 07:38 Dose: 0.5 mg Documented by: Dextrose/Water (50% Dextrose In Water 50 Ml Syringe) 25 ml IVPUSH ASDIRECTED PRN PRN Reason: Hypoglycemia BS<70 Docusate Sodium (Docusate Sodium 100 Mg Cap) 100 mg PO BID PRN PRN Reason: Constipation Enoxaparin Sodium (Enoxaparin 40 Mg/0.4 Ml Syringe) 40 mg SUBCUT DAILY [facility] Last Admin: 05/08/21 10:13 Dose: 40 mg Documented by: Insulin Human Lispro (Insulin Lispro 100 Units/Ml 3 Ml Vial) 0 unit SUBCUT WITHMEALSANDBED [facility]; Protocol Last Admin: 05/08/21 13:28 Dose: 6 units Documented by: Methylprednisolone Sodium Succinate (Methylprednisolone Sodium Succinate 40 Mg/1 Ml Sdv) 40 mg IVPUSH Q6H [facility] Last Admin: 05/08/21 10:08 Dose: 40 mg Documented by: Ondansetron HCl (Ondansetron 4 Mg/2 Ml Sdv) 4 mg IVPUSH Q6H PRN PRN Reason: Nausea/Vomiting Oseltamivir Phosphate (Oseltamivir 75 Mg Cap) 75 mg PO BID [facility] Stop: 05/11/21 21:01 Last Admin: 05/08/21 10:11 Dose: 75 mg Documented by: Oxycodone HCl (Oxycodone 5 Mg Tab) 5 mg PO Q4H PRN PRN Reason: Pain (moderate 4-6) Sodium Chloride (Sodium Chloride 0.9% 10 Ml Syringe) 10 ml FLUSH ASDIRECTED PRN PRN Reason: Keep Vein Open Last Admin: 05/07/21 11:44 Dose: 10 ml Documented by: Temazepam (Temazepam 15 Mg Cap) 15 mg PO BEDTIME PRN PRN Reason: Sleep Last Admin: 05/07/21 20:36 Dose: 15 mg Documented by: Discontinued Medications Acetaminophen (Acetaminophen 500 Mg Tab) 1,000 mg PO ONETIME ONE Stop: 05/07/21 13:14 Last Admin: 05/07/21 13:17 Dose: 1,000 mg Documented by: Albuterol/Ipratropium (Albuterol/Ipratropium 3.0-0.5 Mg/3 Ml Neb Soln) 3 ml NEB ONETIME ONE Stop: 05/07/21 11:17 Last Admin: 05/07/21 11:34 Dose: 3 ml Documented by: Aspirin (Aspirin 81 Mg Tab.Chew) 324 mg PO ONETIME ONE Stop: 05/07/21 11:17 Last Admin: 05/07/21 11:43 Dose: 324 mg Documented by: Azithromycin (Azithromycin 250 Mg Tab) 500 mg PO DAILY [facility] Last Admin: 05/07/21 19:41 Dose: Not Given Documented by: Dexamethasone (Dexamethasone 4 Mg/Ml Sdv) 6 mg IVPUSH ONETIME ONE Stop: 05/07/21 11:17 Last Admin: 05/07/21 11:43 Dose: 6 mg Documented by: Sodium Chloride (Normal Saline) 1,000 mls @ 999 mls/hr IV .BOLUS ONE Stop: 05/07/21 12:17 Last Admin: 05/07/21 11:43 Dose: 999 mls/hr Documented by: Potassium Chloride/Sodium Chloride (Normal Saline With 20 Meq Kcl) 1,000 mls @ 150 mls/hr IV ASDIRECTED [facility] Last Admin: 05/08/21 04:28 Dose: 150 mls/hr Documented by: Oseltamivir Phosphate (Oseltamivir 75 Mg Cap) 75 mg PO ONETIME ONE Stop: 05/07/21 12:24 Last Admin: 05/07/21 13:04 Dose: 75 mg Documented by: - Exam General: Alert, Oriented Neck: Supple Lungs: Normal Respiratory Effort, Wheezing Cardiovascular: Regular Rate, Regular Rhythm GI/Abdominal Exam: Normal Bowel Sounds, Soft, Non-Tender Extremities: No Pedal Edema - Patient Data Lab Results Last 24 hrs: Laboratory Results - last 24 hr 05/07/21 05/07/21 05/08/21 Range/Units 16:44 20:34 11:24 POC Glucose 222 H 198 H 268 H (70-99) mg/dL Result Diagrams: 05/07/21 11:15 05/07/21 11:15 Beck Results Last 24 hrs: Microbiology 05/07/21 11:40 Aerobic Blood Culture - Preliminary Blood - Arm, Right NO GROWTH AFTER 1 DAY Anaerobic Blood Culture - Preliminary NO GROWTH AFTER 1 DAY 05/07/21 11:15 Aerobic Blood Culture - Preliminary Blood - Venous - Iv Start NO GROWTH AFTER 1 DAY Anaerobic Blood Culture - Preliminary NO GROWTH AFTER 1 DAY Sepsis Event Note - Evaluation Sepsis Screening Result: No Definite Risk - Focused Exam Vital Signs: Vital Signs Temp Pulse Resp BP Pulse Ox 05/08/21 12:00 97.8 F 81 18 147/76 H 93 L 05/08/21 07:52 98.1 F 73 18 134/76 95 05/08/21 04:00 99.1 F 83 22 H 154/90 H 93 L - Problem List & Annotations (1) Acute respiratory failure with hypoxia SNOMED Code(s): 96702497, 171905491 Code(s): J96.01 - ACUTE RESPIRATORY FAILURE WITH HYPOXIA Status: Acute C urrent Visit: No (2) History of asthma SNOMED Code(s): 501522244 Code(s): Z87.09 - PERSONAL HISTORY OF OTHER DISEASES OF THE RESPIRATORY SYSTEM Status: Acute Current Visit: No (3) Influenza A SNOMED Code(s): 726314891 Code(s): J10.1 - FLU DUE TO OTH IDENT INFLUENZA VIRUS W OTH RESP MANIFEST Status: Acute Current Visit: No - Problem List Review Problem List Initiated/Reviewed/Updated: Yes - My Orders Last 24 Hours: My Active Orders 05/07/21 13:34 Admission Diagnosis [ADT] Routine Patient Status [ADT] Routine 05/07/21 14:00 methylPREDNISolone Sod Succ [Solu-MEDROL] 40 mg IVPUSH Q6H 05/07/21 14:13 Oxygen Therapy [RC] PRN Up With Assistance [RC] ASDIRECTED VTE/DVT Education [RC] Vital Signs [RC] 00,04,08,12,16,20 Acetaminophen [TylenoL] 650 mg PO Q4H PRN Docusate Sodium [Colace] 100 mg PO BID PRN Ondansetron [Zofran] 4 mg IVPUSH Q6H PRN Temazepam [Restoril] 15 mg PO BEDTIME PRN oxyCODONE 5 mg PO Q4H PRN Resuscitation Status Routine 05/07/21 14:15 Blood Glucose Check, Bedside [RC] WITHMEALSANDBED Dextrose 50% in Water 25 ml IVPUSH ASDIRECTED PRN 05/07/21 14:17 Isolation [COMM] Routine 05/07/21 14:18 RT Aerosol Therapy [RC] ,,,18 Albuterol/Ipratropium [DuoNeb 3.0-0.5 MG/3 ML] 3 ml NEB Q6HRRT PRN 05/07/21 Dinner Regular Diet [DIET] 05/07/21 18:00 Albuterol/Ipratropium [DuoNeb 3.0-0.5 MG/3 ML] 3 ml NEB Q6HRRT Budesonide [Pulmicort] 0.5 mg NEB BIDRT Insulin Lispro [HumaLOG] See Protocol SUBCUT WITHMEALSANDBED 05/07/21 18:30 Azithromycin [Zithromax] 500 mg PO DAILY 05/07/21 21:00 Oseltamivir [Tamiflu] 75 mg PO BID 05/08/21 09:00 Enoxaparin [Lovenox] 40 mg SUBCUT DAILY - Plan Plan:: Acute hypoxemic respiratory failure Will supplement oxygen as needed taper oxygen as possible Acute asthma exacerbation associated with obesity Will treat with pulmicort, scheduled and as needed duoneb Started solumedrol Acute viral influenza Started Tamiflu Respiratory isolation procalcitonin: pending he is describing brown sputum - possible bacterial superinfection treat with azithromycin until procal is resulted Hyponatremia mild Will hydrate Recheck in AM Hyperglycemia Follow BS Use supplemental insulin and hypoglycemia protocol as needed Dvt prophylaxis with lovenox
[2021-05-08] MEDS: Sodium Chloride 0.9% 10 ML Syringe FLUSH PRN ×2 (15:21→19:51)
[2021-05-09] MEDS: Albuterol/Ipratropium 3.0-0.5 MG/3 ML Neb Soln NEB SCH ×3 (01:17→14:01)
[2021-05-09] MEDS: Temazepam 15 MG Cap PO PRN (01:24)
[2021-05-09] MEDS: Sodium Chloride 0.9% 10 ML Syringe FLUSH PRN ×2 (01:25→08:12)
[2021-05-09] MEDS: methylPREDNISolone Sodium Succinate 40 MG/1 ML SDV IVPUSH SCH ×2 (01:26→08:09)
[2021-05-09 07:05] LABS: CHLORIDE,CL 103 mmol/L (98-107); SODIUM,NA 142 mmol/L (136-145)
[2021-05-09] MEDS: Azithromycin 250 MG Tab PO SCH (08:07)
[2021-05-09] MEDS: Oseltamivir 75 MG Cap PO SCH (08:07)
[2021-05-09] MEDS: Enoxaparin 40 MG/0.4 ML Syringe SUBCUT SCH (08:08)
[2021-05-09] MEDS: Insulin Lispro 100 Units/ML 3 ML Vial SUBCUT SCH (08:20)
--- NOTE | 2021-05-09 08:25 | PCM.DCSUM1 ---
Discharge Summary - Hospital Course Brief History: This is a 35-year-old with past medical history of asthma, nicotine dependence, and obesity who was admitted to the hospital due to history of shortness of breath associated with wet cough and was diagnosed with asthma exacerbation along with influenza A infection. Diagnosis: Stroke: No Modified [place] Scale: No Symptoms at All Modified [place] Scale Score: 0 - Discharge Data Discharge Date: 05/09/21 Discharge Disposition: Home, Self-Care 01 Condition: Good - Referral to Home Health Primary Care Physician: PCP None - Patient Summary/Data Operative Procedure(s) Performed: None Complications: None Consults: None Labs Pending at D/C: None none Recommended Follow-up Testing/Procedures: Pulmonary function test and sleep study. Also recommend 2D echo for baseline. Hospital Course: Patient was primarily admitted for asthma exacerbation due to influenza infection and possibly exacerbated by his smoking. He received initial treatment with tamiflu, solu-medrol along with bronchodilators. The patient improved with this regimen. His hospital course was uncomplicated and deemed stable for discharge. He was advised to follow discharge instructions and to follow-up with his primary care in one week. To note, prior to discharge he was counseled on smoking cessation but was not ready to make lifestyle changes. Instead, he was advised to avoid smoking for now until he completely recovers from his acute illness. - Patient Instructions Diet: Heart Healthy Diet Activity: As Tolerated Driving: May Drive Today Showering/Bathing: May Shower Notify Provider of: Fever, Increased Pain, Nausea and/or Vomiting - Discharge Plan *PRESCRIPTION DRUG MONITORING PROGRAM REVIEWED*: Not Applicable *COPY OF PRESCRIPTION DRUG MONITORING REPORT IN PATIENT [facility]: Not Applicable Prescriptions/Med Rec: Albuterol Sulfate [Albuterol Sulfate Hfa] 8.5 gm IH Q4H PRN #1 [id number] PRN Reason: Asthma Albuterol [Proventil Neb Soln] 2.5 mg NEB Q4H PRN #10 ml PRN Reason: Asthma Oseltamivir [Tamiflu] 75 mg PO BID #6 cap Tobacco Cessation Medication: Prescription Refused Home Medications: Home Meds Albuterol Sulfate [Albuterol Sulfate Hfa] 8.5 gm IH Q4H PRN #1 [id number] 05/09/21 [Rx] Albuterol [Proventil Neb Soln] 2.5 mg NEB Q4H PRN #10 ml 05/09/21 [Rx] Oseltamivir [Tamiflu] 75 mg PO BID #6 cap 05/09/21 [Rx] Oxygen Therapy Mode: Room Air Patient Handouts: Influenza, Adult, How to Use a Nebulizer, Adult, Albuterol Metered Dose Inhaler (MDI), Oseltamivir Oral Capsules, Asthma, Adult, [id number], Albuterol Nebulizer Solution - Discharge Summary/Plan Comment DC Time >30 min.: No Total # of Minutes for Discharge Time: 15 mins Discharge Summary/Plan Comment: You will be discharged with additional course of Tamiflu along with breathing treatments for asthma. Per your request, we will initiate nebulizer for outpatient treatment and we suggest for you to continue to take your hand held puffer as needed for shortness of breath. We recommend that you get pulmonary function test along with sleep study and 2D echo before you the lung specialist in [place]. As for home activities, slowly increase level of activities as you can tolerate. Make sure to follow-up with your primary care in 1 week. We also recommend to obtain COVID and influenza vaccinations when medically appropriate. And most importantly, please come back and or seek immediate care at the nearest medical facility should your symptoms persist or get worse. - General Info Date of Service: 05/09/21 Admission Dx/Problem (Free Text: Admission Diagnosis/Problem Admission Diagnosis/Problem Acute respiratory failure Subjective Update: He reports no overnight or acute issues. He is doing relatively well and wants to go home. His vitals are stable and satting adequately on room air. Functional Status: Reports: Pain Controlled, Ambulating, Urinating. Denies: New Symptoms - Review of Systems General: Denies: Fever, Chills HEENT: Denies: Contact Lenses Pulmonary: Denies: Shortness of Breath, Cough, Wheezing Cardiovascular: Denies: Chest Pain, Lightheadedness Gastrointestinal: Denies: Abdominal Pain, Nausea, Vomiting Genitourinary: Reports: No Symptoms Musculoskeletal: Reports: No Symptoms Skin: Reports: No Symptoms Neurological: Denies: Confusion, Weakness Psychiatric: Denies: Depression, Anxiety, Agitation, Hallucinations - Patient Data Vitals - Most Recent: Last Vital Signs Temp 37.0 C 05/09/21 08:00 Pulse 80 05/09/21 08:00 Resp 18 05/09/21 08:00 BP 151/75 H 05/09/21 08:00 Pulse Ox 88 L 05/09/21 08:00 Weight - Most Recent: 134.853 kg I&O - Last 24 hours: Intake & Output 05/08/21 05/09/21 05/09/21 22:59 06:59 14:59 Intake Total 475 800 Balance 475 800 Lab Results - Last 24 hrs: Laboratory Results - last 24 hr 05/07/21 05/08/21 05/08/21 Range/Units 11:40 11:24 17:03 WBC (5.0-10.0) 10^3/uL RBC (4.6-6.2) 10^6/uL Hgb (14.0-18.0) g/dL Hct (40.0-54.0) % MCV (80-100) fL MCH (27.0-34.0) pg MCHC (33.0-35.0) g/dL Plt Count (150-450) 10^3/uL Neut % (Auto) (42.2-75.2) % Lymph % (Auto) (20.5-50.1) % [place] % (Auto) (2-8) % Eos % (Auto) (1.0-3.0) % Baso % (Auto) (0.0-1.0) % Add Manual Diff Sodium (136-145) mmol/L Potassium (3.5-5.1) mmol/L Chloride (98-107) mmol/L Carbon Dioxide (21-32) mmol/L Anion Gap (7-13) mEq/L BUN (7-18) mg/dL Creatinine (0.70-1.30) mg/dL Est Cr Clr Drug Dosing mL/min Estimated GFR (MDRD) Glucose (70-99) mg/dL POC Glucose 268 H 257 H (70-99) mg/dL Calcium (8.5-10.1) mg/dL Procalcitonin 0.45 H ng/mL 05/08/21 05/09/21 05/09/21 Range/Units 21:34 05:10 05:10 WBC 24.7 H (5.0-10.0) 10^3/uL RBC 4.95 (4.6-6.2) 10^6/uL Hgb 14.9 D (14.0-18.0) g/dL Hct 47.9 (40.0-54.0) % MCV 96.8 D (80-100) fL MCH 30.1 (27.0-34.0) pg MCHC 31.1 L (33.0-35.0) g/dL Plt Count 176 (150-450) 10^3/uL Neut % (Auto) 89.4 H (42.2-75.2) % Lymph % (Auto) 3.6 L (20.5-50.1) % [place] % (Auto) 7.0 (2-8) % Eos % (Auto) 0.0 L (1.0-3.0) % Baso % (Auto) 0.0 (0.0-1.0) % Add Manual Diff Sodium 142 (136-145) mmol/L Potassium 4.0 (3.5-5.1) mmol/L Chloride 103 (98-107) mmol/L Carbon Dioxide 29 (21-32) mmol/L Anion Gap 14.0 H (7-13) mEq/L BUN 14 (7-18) mg/dL Creatinine 0.69 L (0.70-1.30) mg/dL Est Cr Clr Drug Dosing 139.70 mL/min Estimated GFR (MDRD) > 60 Glucose 175 H (70-99) mg/dL POC Glucose 257 H (70-99) mg/dL Calcium 8.6 (8.5-10.1) mg/dL Procalcitonin ng/mL 05/09/21 Range/Units 07:42 WBC (5.0-10.0) 10^3/uL RBC (4.6-6.2) 10^6/uL Hgb (14.0-18.0) g/dL Hct (40.0-54.0) % MCV (80-100) fL MCH (27.0-34.0) pg MCHC (33.0-35.0) g/dL Plt Count (150-450) 10^3/uL Neut % (Auto) (42.2-75.2) % Lymph % (Auto) (20.5-50.1) % [place] % (Auto) (2-8) % Eos % (Auto) (1.0-3.0) % Baso % (Auto) (0.0-1.0) % Add Manual Diff Sodium (136-145) mmol/L Potassium (3.5-5.1) mmol/L Chloride (98-107) mmol/L Carbon Dioxide (21-32) mmol/L Anion Gap (7-13) mEq/L BUN (7-18) mg/dL Creatinine (0.70-1.30) mg/dL Est Cr Clr Drug Dosing mL/min Estimated GFR (MDRD) Glucose (70-99) mg/dL POC Glucose 191 H (70-99) mg/dL Calcium (8.5-10.1) mg/dL Procalcitonin ng/mL CHEKO Results - Last 24 hrs: Microbiology 05/07/21 11:40 Aerobic Blood Culture - Preliminary Blood - Arm, Right NO GROWTH AFTER 1 DAY Anaerobic Blood Culture - Preliminary NO GROWTH AFTER 1 DAY 05/07/21 11:15 Aerobic Blood Culture - Preliminary Blood - Venous - Iv Start NO GROWTH AFTER 1 DAY Anaerobic Blood Culture - Preliminary NO GROWTH AFTER 1 DAY Med Orders - Current: Current Medications Acetaminophen (Acetaminophen 325 Mg Tab) 650 mg PO Q4H PRN PRN Reason: Pain (Mild 1-3)/fever Albuterol/Ipratropium (Albuterol/Ipratropium 3.0-0.5 Mg/3 Ml Neb Soln) 3 ml NEB Q6HRRT [facility] Last Admin: 05/09/21 01:17 Dose: 3 ml Documented by: Albuterol/Ipratropium (Albuterol/Ipratropium 3.0-0.5 Mg/3 Ml Neb Soln) 3 ml NEB Q6HRRT PRN PRN Reason: sob Last Admin: 05/07/21 15:17 Dose: 3 ml Documented by: Azithromycin (Azithromycin 250 Mg Tab) 500 mg PO DAILY [facility] Last Admin: 05/09/21 08:07 Dose: 500 mg Documented by: Budesonide (Budesonide 0.5 Mg/2 Ml Neb Susp) 0.5 mg NEB BIDRT [facility] Last Admin: 05/08/21 18:06 Dose: 0.5 mg Documented by: Dextrose/Water (50% Dextrose In Water 50 Ml Syringe) 25 ml IVPUSH ASDIRECTED PRN PRN Reason: Hypoglycemia BS<70 Docusate Sodium (Docusate Sodium 100 Mg Cap) 100 mg PO BID PRN PRN Reason: Constipation Enoxaparin Sodium (Enoxaparin 40 Mg/0.4 Ml Syringe) 40 mg SUBCUT DAILY [facility] Last Admin: 05/09/21 08:08 Dose: 40 mg Documented by: Insulin Human Lispro (Insulin Lispro 100 Units/Ml 3 Ml Vial) 0 unit SUBCUT WITHMEALSANDBED [facility]; Protocol Last Admin: 05/09/21 08:20 Dose: 2 units Documented by: Methylprednisolone Sodium Succinate (Methylprednisolone Sodium Succinate 40 Mg/1 Ml Sdv) 40 mg IVPUSH Q6H [facility] Last Admin: 05/09/21 08:09 Dose: 40 mg Documented by: Ondansetron HCl (Ondansetron 4 Mg/2 Ml Sdv) 4 mg IVPUSH Q6H PRN PRN Reason: Nausea/Vomiting Oseltamivir Phosphate (Oseltamivir 75 Mg Cap) 75 mg PO BID [facility] Stop: 05/11/21 21:01 Last Admin: 05/09/21 08:07 Dose: 75 mg Documented by: Oxycodone HCl (Oxycodone 5 Mg Tab) 5 mg PO Q4H PRN PRN Reason: Pain (moderate 4-6) Sodium Chloride (Sodium Chloride 0.9% 10 Ml Syringe) 10 ml FLUSH ASDIRECTED PRN PRN Reason: Keep Vein Open Last Admin: 05/09/21 08:12 Dose: 10 ml Documented by: Temazepam (Temazepam 15 Mg Cap) 15 mg PO BEDTIME PRN PRN Reason: Sleep Last Admin: 05/09/21 01:24 Dose: 15 mg Documented by: Discontinued Medications Acetaminophen (Acetaminophen 500 Mg Tab) 1,000 mg PO ONETIME ONE Stop: 05/07/21 13:14 Last Admin: 05/07/21 13:17 Dose: 1,000 mg Documented by: Albuterol/Ipratropium (Albuterol/Ipratropium 3.0-0.5 Mg/3 Ml Neb Soln) 3 ml NEB ONETIME ONE Stop: 05/07/21 11:17 Last Admin: 05/07/21 11:34 Dose: 3 ml Documented by: Aspirin (Aspirin 81 Mg Tab.Chew) 324 mg PO ONETIME ONE Stop: 05/07/21 11:17 Last Admin: 05/07/21 11:43 Dose: 324 mg Documented by: Azithromycin (Azithromycin 250 Mg Tab) 500 mg PO DAILY [facility] Last Admin: 05/07/21 19:41 Dose: Not Given Documented by: Dexamethasone (Dexamethasone 4 Mg/Ml Sdv) 6 mg IVPUSH ONETIME ONE Stop: 05/07/21 11:17 Last Admin: 05/07/21 11:43 Dose: 6 mg Documented by: Sodium Chloride (Normal Saline) 1,000 mls @ 999 mls/hr IV .BOLUS ONE Stop: 05/07/21 12:17 Last Admin: 05/07/21 11:43 Dose: 999 mls/hr Documented by: Potassium Chloride/Sodium Chloride (Normal Saline With 20 Meq Kcl) 1,000 mls @ 150 mls/hr IV ASDIRECTED [facility] Last Admin: 05/08/21 04:28 Dose: 150 mls/hr Documented by: Oseltamivir Phosphate (Oseltamivir 75 Mg Cap) 75 mg PO ONETIME ONE Stop: 05/07/21 12:24 Last Admin: 05/07/21 13:04 Dose: 75 mg Documented by: - Exam Quality Assessment: Denies: Supplemental Oxygen General: Reports: Alert, Oriented, Cooperative, No Acute Distress, Other (Mo rbidly Obese) HEENT: Reports: Pupils Equal, Pupils Reactive, EOMI, Mucous Membr. Moist/[place] Neck: Reports: Supple Lungs: Reports: Clear to Auscultation, Normal Respiratory Effort Cardiovascular: Reports: Regular Rate, Regular Rhythm GI/Abdominal Exam: Normal Bowel Sounds, Soft, Non-Tender, No Organomegaly, No Distention, No Abnormal Bruit, No Mass, Other (Obese) (Male) Exam: Deferred Rectal (Males) Exam: Deferred Back Exam: Reports: Normal Inspection, Full Range of Motion Extremities: Normal Inspection, Normal Range of Motion, Non-Tender, No Pedal Edema, Normal Capillary Refill Skin: Reports: Warm, Dry, Intact Wound/Incisions: Reports: Healing Well Neurological: Reports: No New Focal Deficit Psy/Mental Status: Reports: Alert, Normal Affect, Normal Mood
[2021-05-09] MEDS: Budesonide 0.5 MG/2 ML Neb Susp NEB SCH (08:58)
== END 2021-05-09 12:00 | disposition home or self-care (01) | DRG 193 ==
LOC: DL.ED 10:57 → DL.MS 13:48
PROVIDERS: ADMIT Internal Medicine; ATTEND Internal Medicine
DX: J10.1 Influenza due to other identified influenza virus with other respiratory manifestations (principal); J96.01 Acute respiratory failure with hypoxia; J45.901 Unspecified asthma with (acute) exacerbation; E87.1 Hypo-osmolality and hyponatremia; J45.909 Unspecified asthma, uncomplicated; Z68.42 Body mass index [BMI] 45.0-49.9, adult; F17.210 Nicotine dependence, cigarettes, uncomplicated; E66.9 Obesity, unspecified; E78.00 Pure hypercholesterolemia, unspecified; I10 Essential (primary) hypertension; K21.9 Gastro-esophageal reflux disease without esophagitis; R73.9 Hyperglycemia, unspecified; Z87.09 Personal history of other diseases of the respiratory system; Z20.822 Contact with and (suspected) exposure to COVID-19
CPT/HCPCS: 0241U; 36415; 71250; 80048; 80053; 82728; 82947; 83605; 83880; 84145; 84484; 85025; 85379; 85610; 85730; 86140; 87040; 93005; 94640; 96374; 99285-25; A9270-GY; J1100; J1650; J1815-GY; J2920; J3480; J7030; J7620-GY

== ENCOUNTER 2021-10-08 21:00 | Emergency (ER) | payer MEDICAID ==
[2021-10-08 22:23] LABS: ANION GAP 11.3 mEq/L (7-13); CHLORIDE,CL 102 mmol/L (98-107); SODIUM,NA 139 mmol/L (136-145)
[2021-10-08 22:29] LABS: ESTIMATED GFR > 60
[2021-10-08 23:17] LABS: CORONAVIRUS COVID-19 NAA NEGATIVE (NEGATIVE)
== END 2021-10-08 23:05 | disposition home or self-care (01) ==
LOC: DL.ED 21:00
DX: K21.9 Gastro-esophageal reflux disease without esophagitis (principal); E78.00 Pure hypercholesterolemia, unspecified; I10 Essential (primary) hypertension; F17.210 Nicotine dependence, cigarettes, uncomplicated; E66.9 Obesity, unspecified; Z68.42 Body mass index [BMI] 45.0-49.9, adult; Z20.822 Contact with and (suspected) exposure to COVID-19
CPT/HCPCS: 0240U; 36415; 71046; 80053; 83605; 84484; 85025; 87040; 93005; 93010; 99284; 99285

== ENCOUNTER 2024-11-12 15:37 | Emergency (ER) | payer MEDICAID ==
[2024-11-12 16:13] LABS: BASOPHILS PERCENT AUTO 0.9 % (0.0-1.0); EOSINOPHILS PERCENT AUTO 3.3 % (1.0-3.0); LYMPHOCYTES PERCENT AUTO 22.2 % (20.5-50.1); MONOCYTES PERCENT AUTO 8.3 % (2-8); NEUTROPHILS PERCENT AUTO 65.3 % (42.2-75.2); PLATELET COUNT,PLT 179 10^3/uL (150-450); RED BLOOD CELL COUNT 5.17 10^6/uL (4.6-6.2); WHITE BLOOD CELL COUNT,WBC 11.9 10^3/uL (5.0-10.0)
[2024-11-12 16:32] LABS: A/G RATIO 1.1; ALANINE AMINOTRANSFERASE,ALT 36 U/L (16-63); ASPARTATE AMNIOTRANSFERASE,AST 19 U/L (15-37); BILIRUBIN TOTAL 0.4 mg/dL (0.2-1.0); BLOOD UREA NITROGEN,BUN 5 mg/dL (7-18); CARBON DIOXIDE,CO2 33 mmol/L (21-32); CHLORIDE,CL 98 mmol/L (98-107); CREATININE 0.84 mg/dL (0.70-1.30); GLUCOSE RANDOM 283 mg/dL (70-99); POTASSIUM,K 3.5 mmol/L (3.5-5.1); PROTEIN TOTAL,TP 6.8 g/dL (6.4-8.2); SODIUM,NA 137 mmol/L (136-145)
[2024-11-12 16:33] LABS: ESTIMATED GFR 114 mL/min (>=60)
[2024-11-12 16:38] LABS: B-TYPE NATRIURETIC PEPTIDE,BNP 11 pg/ml (0-100)
== END 2024-11-12 17:48 | disposition home or self-care (01) ==
LOC: DL.ED 15:37
DX: I10 Essential (primary) hypertension (principal); E78.00 Pure hypercholesterolemia, unspecified; J45.909 Unspecified asthma, uncomplicated; K21.9 Gastro-esophageal reflux disease without esophagitis; Z79.51 Long term (current) use of inhaled steroids; Z79.899 Other long term (current) drug therapy
CPT/HCPCS: 36415; 80053; 83880; 84484; 85025; 93005; 99283